=== PATIENT | male | born 1940 | race Caucasian/White ===

== ENCOUNTER 2018-06-17 12:58 | Outpatient (CLI) | payer MEDICARE, OTHER ==
--- NOTE | 2018-06-17 15:58 | CT ---
CT ABDOMEN AND PELVIS WITHOUT CONTRAST 06/17/18 HISTORY: I70.212 - claudication. COMPARISON: None. FINDINGS: CT of the abdomen, pelvis, and lower extremities was performed without intravenous contrast due to th e patient's poor GFR. Evaluation for stenosis or thrombosis is unable to be performed. Lung bases are clear. No pericardial effusion. Calcified granulomas of the liver. Spleen is unremarka ble as well as the pancreas. Multiple hypodensities are present in the kidneys. Incompletely evaluated on this noncontrast examina tion. The adrenal glands are unremarkable. There are no dilated loops of large or small bowel. The appendix is visualized and is normal. Hypoden sities are present in the right kidney which measures 50 Hounsfield units and not diagnostic of a pro teinaceous nor a simple cyst. Small right sided fat containing indirect inguinal hernia. There is atrophy of the bilateral hamstring musculature. Atrophy of the left anterior and lateral com partments of the lower extremity including the soleus and gastrocnemius muscles as well as the perone us muscles. Moderate atrophy of the left medial gastrocnemius and soleus. Moderate atherosclerotic plaque of the aorta. Moderate atherosclerotic plaque of the bilateral lower extremity arterial system. Mild degenerative disease of both hips. 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 Laminectomy changes lower lumbar spine. IMPRESSION: 1. Hypodensity of the right kidney not diagnostic of a proteinaceous or simple cyst. Nonemergent ultrasound would be beneficial given the patient's poor renal function. 2. Atrophy of the posterior and lateral compartments of the left lower extremity below the ankle . 3. Bilateral mild hamstring muscle atrophy. 4. Evaluation for thrombosis or stenosis is unable to be performed without intravenous contrast. POS: [facility]
== END 2018-06-17 12:59 | disposition home or self-care (01) ==
LOC: CT 12:58
PROVIDERS: ATTEND Thoracic Surgery (Cardiothoracic Vascular Surgery)
DX: I70.212 Atherosclerosis of native arteries of extremities with intermittent claudication, left leg (principal); R93.421 Abnormal radiologic findings on diagnostic imaging of right kidney; M62.562 Muscle wasting and atrophy, not elsewhere classified, left lower leg; M62.561 Muscle wasting and atrophy, not elsewhere classified, right lower leg
CPT/HCPCS: 74176; 82565

== ENCOUNTER 2019-05-15 10:16 | Outpatient (CLI) | payer MEDICARE, OTHER | END 2019-05-15 10:17 | disposition home or self-care (01) | LOC: DTY/OP 10:16 | PROVIDERS: ATTEND Internal Medicine | DX: N18.9 Chronic kidney disease, unspecified (principal) | CPT/HCPCS: 97802 ==